=== PATIENT | male | born 1985 | race Two or more races ===

== ENCOUNTER 2018-01-15 11:16 | Emergency (ER) | payer MEDICAID ==
[~2018-01-15] VITALS: Ht 170.2 cm; Wt 116.6 kg
[2018-01-15 11:22] VITALS: BP 148/80
== END 2018-01-15 13:48 | disposition left against medical advice (07) ==
LOC: ER 11:16
DX: R06.02 Shortness of breath (principal); Z53.21 Procedure and treatment not carried out due to patient leaving prior to being seen by health care provider

== ENCOUNTER 2018-02-03 22:51 | Emergency (ER) | payer MEDICAID ==
[~2018-02-03] VITALS: Ht 170.2 cm; Wt 119.3 kg
[2018-02-03 23:19] VITALS: BP 152/83
== END 2018-02-04 00:48 | disposition home or self-care (01) ==
LOC: ER 22:54
DX: J45.909 Unspecified asthma, uncomplicated (principal); Z76.0 Encounter for issue of repeat prescription